=== PATIENT | male | born 1975 | race Caucasian/White ===

== ENCOUNTER 2016-09-16 10:54 | Emergency (ER) | payer MEDICARE, BC ==
[~2016-09-16] VITALS: Ht 172.7 cm; Wt 83.9 kg
[~2016-09-16 10:54] MED LIST: ACET-654 PO; AMLO5TAB2 PO; AUGM875T27 PO; CARA1TAB2 PO; CARV25TA PO; CEFA1INJ5 IV; CLON-404 PO; COLA100C3 PO; FURO40TA2 PO; HYDR-3713 PO; HYDR100T PO; ISOS30TA4 PO; KEFZOL IV; KION15SU PO; LISI40TAB PO; NEPHTA PO; PRIN20TA3 PO; PROT1TAB2 PO; RENV2TAB PO; SPIR25TA2 PO; TYLE325T5 PO; VANC10005 INJ; [UNRECOGNIZED DRUG - CODE] IV; [UNRECOGNIZED DRUG - CODE] PO; [UNRECOGNIZED DRUG - CODE] PO
[2016-09-16] MEDS ORDERED: [UNRECOGNIZED DRUG - CODE] PO (11:11)
[2016-09-16] MEDS ORDERED: TACR0.5C3 PO (11:11)
[2016-09-16] MEDS ORDERED: MYCOPHENOLIC PO (11:11)
[2016-09-16] MEDS ORDERED: MAGN400C2 PO (11:11)
[2016-09-16] MEDS ORDERED: NORCO, ANEXSIA 5/325MG TABLET (HYDROcodone/ACETAMINOPHEN) PO ONE (13:15)
--- NOTE | 2016-09-16 13:47 | REP ---
Left foot four views : There is no fracture or dislocation. Mineralization and joint spaces are normal. There are no calcifications or foreign bodies. Impression: Negative ? Left foot. The third metatarsal is unremarkable. . Signed by Bright Valladares MD 09/16/2016 01:40 P
[2016-09-16 13:55] LABS: BASO % 0.6 % (0.0-1.0); EOS # 0.1 K/mm3 (0.0-0.50); EOS % 1.4 % (0.0-3.0); LARGE UNSTAINED CELL # 0.2 K/mm3 (0.0-0.4); LARGE UNSTAINED CELL % 3.1 % (0.0-4.0); LYMPH # 1.2 K/mm3 (1.5-4.5); LYMPH % 20.8 % (24.0-44.0); MEAN CORPUSCULAR HEMOGLOBIN 31.8 pg (27.0-33.0); MEAN CORPUSCULAR HGB CONC 34.6 g/dl (32.0-36.5); MEAN CORPUSCULAR VOLUME 91.7 fl (80.0-96.0); MONO # 0.4 K/mm3 (0.0-0.8); MONO % 7.1 % (0.0-5.0); NEUTROPHILS # 3.7 K/mm3 (1.8-7.7); PLATELET COUNT, AUTOMATED 225 k/mm3 (150-450); RED CELL DISTRIBUTION WIDTH 13.8 % (11.5-14.5); WHITE BLOOD COUNT 5.5 K/mm3 (4.0-10.0)
[2016-09-16] MEDS ORDERED: ACETAMINOPHEN 325 MG TAB PO ONE (14:00)
[2016-09-16 14:13] LABS: ANION GAP 6 MEQ/L (8-16); BLOOD UREA NITROGEN 22 MG/DL (7-18); CALCIUM LEVEL 9.5 MG/DL (8.5-10.1); CARBON DIOXIDE LEVEL 27 MEQ/L (21-32); CHLORIDE LEVEL 108 MEQ/L (98-107); CREATININE FOR GFR 1.37 MG/DL (0.70-1.30); GLOMERULAR FILTRATION RATE > 60.0 (>60); GLUCOSE, FASTING 103 MG/DL (70-105); SODIUM LEVEL 141 MEQ/L (136-145); URIC ACID 7.2 MG/DL (3.5-7.2)
[2016-09-16 14:45] LABS: ERYTHROCYTE SEDIMENTATION RATE 5 mm/hr (0-15)
[2016-09-16 15:13] LABS: POTASSIUM SERUM 5.2 MEQ/L (3.5-5.1)
[2016-09-16] MEDS ORDERED: NORCOTAB PO (15:20)
[2016-09-16 15:39] VITALS: BP 154/99
== END 2016-09-16 15:57 | disposition home or self-care (01) ==
LOC: M ED 14:15
DX: S93.622A Sprain of tarsometatarsal ligament of left foot, initial encounter (principal); X50.0XXA Overexertion from strenuous movement or load, initial encounter; Y92.019 Unspecified place in single-family (private) house as the place of occurrence of the external cause; Y93.89 Activity, other specified; Y99.8 Other external cause status; I50.9 Heart failure, unspecified; I10 Essential (primary) hypertension; Z98.890 Other specified postprocedural states

== ENCOUNTER → 2017-03-02 | Outpatient (CLI) | payer MEDICARE, BC ==
[~2017-03-02] MED LIST changes: -ACET-654 PO; +ACET1TAB17 PO; -AUGM875T27 PO; +AUGM875T28 PO; -CARA1TAB2 PO; +CARA1TAB6 PO; -CLON-404 PO; +CLON0.3T PO; -COLA100C3 PO; +COLA100C5 PO; +MAGN400C2 PO; +MYCOPHENOLIC PO; +NORCOTAB PO; +TACR0.5C3 PO; +[UNRECOGNIZED DRUG - CODE] PO
[2017-03-02 14:47] LABS: BASO # 0.1 10^3/uL (0.0-0.2); BASO % 1.6 % (0.0-1.0); EOS # 0.1 10^3/uL (0.0-0.50); EOS % 1.1 % (0.0-3.0); IMMATURE GRANULOCYTE % 2.5 % (0-0); LYMPH # 0.9 10^3/uL (1.5-4.5); LYMPH % 19.9 % (24.0-44.0); MEAN CORPUSCULAR HEMOGLOBIN 29.7 pg (27.0-33.0); MEAN CORPUSCULAR HGB CONC 33.6 g/dl (32.0-36.5); MEAN CORPUSCULAR VOLUME 88.3 fl (80.0-96.0); MONO # 0.9 10^3/uL (0.0-0.8); MONO % 19.4 % (0.0-5.0); NEUTROPHILS # 2.4 10^3/uL (1.8-7.7); NEUTROPHILS % 55.5 % (36.0-66.0); PLATELET COUNT, AUTOMATED 202 10^3/uL (150-450); RED CELL DISTRIBUTION WIDTH 13.1 % (11.5-14.5); WHITE BLOOD COUNT 4.4 10^3/uL (4.0-10.0)
[2017-03-02 15:55] LABS: ALBUMIN/GLOBULIN RATIO 1.18 (1.00-1.93); ALKALINE PHOSPHATASE 117 U/L (45-117); ALT/SGPT 40 U/L (12-78); ANION GAP 6 MEQ/L (8-16); AST/SGOT 19 U/L (15-37); BILIRUBIN,DIRECT 0.1 MG/DL (0.0-0.2); BILIRUBIN,TOTAL 0.7 MG/DL (0.2-1.0); BLOOD UREA NITROGEN 18 MG/DL (7-18); CALCIUM LEVEL 9.5 MG/DL (8.5-10.1); CARBON DIOXIDE LEVEL 26 MEQ/L (21-32); CHLORIDE LEVEL 103 MEQ/L (98-107); CHOLESTEROL LEVEL 192 MG/DL (<200); CREATININE FOR GFR 1.06 MG/DL (0.70-1.30); GLOMERULAR FILTRATION RATE > 60.0 (>60); GLUCOSE, FASTING 81 MG/DL (70-105); MAGNESIUM LEVEL 1.7 MG/DL (1.8-2.4); PHOSPHORUS LEVEL 2.6 MG/DL (2.5-4.9); POTASSIUM SERUM 4.4 MEQ/L (3.5-5.1); SODIUM LEVEL 135 MEQ/L (136-145); TOTAL PROTEIN 7.4 GM/DL (6.4-8.2); TRIGLYCERIDES LEVEL 313 MG/DL (<150)
== END ==
LOC: M LAB 13:49
PROVIDERS: ATTEND Internal Medicine Nephrology
DX: Z79.899 Other long term (current) drug therapy (principal); N18.5 Chronic kidney disease, stage 5; D84.9 Immunodeficiency, unspecified; Z94.0 Kidney transplant status

== ENCOUNTER → 2018-08-30 | Outpatient (CLI) | payer MEDICARE, BC ==
[~2018-08-30] MED LIST changes: -ACET1TAB17 PO; +ACET1TAB55 PO; -AMLO5TAB2 PO; +AMLO5TAB6 PO; +HYDR-3715 PO; +LISI40TA52 PO; -LISI40TAB PO; +NEPH5CAP PO; -NEPHTA PO; -NORCOTAB PO; +SPIR-10 PO; -SPIR25TA2 PO
--- NOTE | 2018-08-30 16:55 | REP ---
Right ankle four views: There is a nondisplaced spiral fracture of the distal fibula. No other fracture is identified. The mortise is symmetric. Talar dome is unremarkable. There are no calcifications or foreign bodies. Impression: Nondisplaced fracture of the distal fibula. Electronically Signed by Bright Valladares MD 08/30/2018 04:46 P
== END ==
LOC: M ADAMS 15:12
PROVIDERS: ATTEND Physician Assistant Medical
DX: S82.444A Nondisplaced spiral fracture of shaft of right fibula, initial encounter for closed fracture (principal); X58.XXXA Exposure to other specified factors, initial encounter; Y92.89 Other specified places as the place of occurrence of the external cause

== ENCOUNTER → 2020-02-27 | Outpatient (REF) | payer MEDICARE ==
[~2020-02-27] MED LIST changes: +AMLO1TAB24 PO; -AMLO5TAB6 PO
== END ==
LOC: M LAB REF 16:11
PROVIDERS: ATTEND Nurse Practitioner Family
DX: J03.90 Acute tonsillitis, unspecified (principal)

== ENCOUNTER → 2021-07-31 | Outpatient (REF) | payer BC, MEDICARE ==
[~2021-07-31] MED LIST changes: +ISOS1TAB35 PO; -ISOS30TA4 PO
== END ==
LOC: M SFHCADAM 15:01
PROVIDERS: ATTEND Physician Assistant
DX: R05.9 Cough, unspecified (principal)

== ENCOUNTER → 2023-10-27 | Outpatient (CLI) | payer MEDICARE | LOC: M PLAIMG 12:28 | PROVIDERS: ATTEND Student in an Organized Health Care Education/Training Program | DX: R10.32 Left lower quadrant pain (principal) ==